=== PATIENT | male | born 1945 ===

== ENCOUNTER → 2016-11-30 | Outpatient (REF) | payer MEDICARE, OTHER ==
[~2016-11-30] MED LIST: /WARF25TA OR; /WARF5TA OR; ACET65TA OR; ADVIL PO; ALEVE PO; AMLO10TA OR; PERC7.5T8 OR
[2016-11-30 13:50] LABS: PERCENT SATURATION 14.2 % (19.7-37.4)
== END ==
LOC: M LAB REF 12:41
PROVIDERS: ATTEND Internal Medicine
DX: D50.9 Iron deficiency anemia, unspecified (principal)

== ENCOUNTER → 2017-03-25 | Outpatient (REF) | payer MEDICARE, OTHER | LOC: M LAB REF 10:56 | PROVIDERS: ATTEND Internal Medicine | DX: D50.9 Iron deficiency anemia, unspecified (principal) ==

== ENCOUNTER → 2018-02-08 | Outpatient (REF) | payer MEDICARE, OTHER ==
[2018-02-08 11:34] LABS: FERRITIN 130 NG/ML (26-388); IRON (FE) 68 UG/DL (65-175); PERCENT SATURATION 18.7 % (19.7-50.0); TOTAL IRON BINDING CAPACITY 363 UG/DL (250-450)
== END ==
LOC: M LAB REF 11:10
DX: D50.9 Iron deficiency anemia, unspecified (principal)
CPT/HCPCS: 83550

== ENCOUNTER → 2019-02-02 | Outpatient (REF) | payer MEDICARE, OTHER ==
[~2019-02-02] MED LIST changes: -/WARF25TA OR; -/WARF5TA OR; +COUM1TAB17 OR; +COUM1TAB18 OR
[2019-02-02 13:02] LABS: PERCENT SATURATION 21.7 % (19.7-50.0)
== END ==
LOC: M LAB REF 12:15
PROVIDERS: ATTEND Internal Medicine
DX: D50.9 Iron deficiency anemia, unspecified (principal)

== ENCOUNTER → 2020-06-10 | Outpatient (REF) | payer MEDICARE, OTHER ==
[2020-06-10 13:55] LABS: PERCENT SATURATION 14.9 % (19.7-50.0)
== END ==
LOC: M LAB REF 12:26
PROVIDERS: ATTEND Internal Medicine
DX: D50.9 Iron deficiency anemia, unspecified (principal)

== ENCOUNTER → 2020-12-17 | Outpatient (REF) | payer MEDICARE, OTHER ==
[2020-12-17 14:43] LABS: PERCENT SATURATION 19.4 % (19.7-50.0)
== END ==
LOC: M LAB REF 12:42
PROVIDERS: ATTEND Internal Medicine
DX: D50.9 Iron deficiency anemia, unspecified (principal)

== ENCOUNTER → 2021-12-22 | Outpatient (REF) | payer MEDICARE, OTHER ==
[2021-12-22 13:23] LABS: PERCENT SATURATION 14.4 % (19.7-50.0)
== END ==
LOC: M LAB REF 12:05
PROVIDERS: ATTEND Internal Medicine
DX: D50.9 Iron deficiency anemia, unspecified (principal)

== ENCOUNTER → 2022-09-21 | Outpatient (REF) | payer MEDICARE, OTHER ==
[2022-09-21 14:01] LABS: PERCENT SATURATION 18.5 % (19.7-50.0)
[2022-09-21 14:05] LABS: FERRITIN 112.5 NG/ML (10.5-307.3)
== END ==
LOC: M LAB REF 12:27
PROVIDERS: ATTEND Internal Medicine
DX: D50.9 Iron deficiency anemia, unspecified (principal)

== ENCOUNTER → 2023-03-14 | Outpatient (REF) | payer MEDICARE, OTHER ==
[2023-03-14 18:53] LABS: PERCENT SATURATION 17.8 % (19.7-50.0)
[2023-03-14 18:56] LABS: FERRITIN 127.4 NG/ML (10.5-307.3)
== END ==
LOC: M LAB REF 16:47
PROVIDERS: ATTEND Internal Medicine
DX: D50.9 Iron deficiency anemia, unspecified (principal)

== ENCOUNTER → 2024-03-26 | Outpatient (REF) | payer MEDICARE, OTHER ==
[2024-03-26 12:47] LABS: PERCENT SATURATION 19.6 % (19.7-50.0)
[2024-03-26 12:52] LABS: FERRITIN 126.9 NG/ML (10.5-307.3)
== END ==
LOC: M LAB REF 11:40
PROVIDERS: ATTEND Internal Medicine
DX: D64.9 Anemia, unspecified (principal)

== ENCOUNTER → 2024-09-27 | Outpatient (REF) | payer MEDICARE, OTHER ==
[2024-09-27 13:08] LABS: PERCENT SATURATION 18.1 % (19.7-50.0)
[2024-09-27 13:11] LABS: FERRITIN 136.8 NG/ML (10.5-307.3)
== END ==
LOC: M LAB REF 12:04
PROVIDERS: ATTEND Internal Medicine
DX: D50.9 Iron deficiency anemia, unspecified (principal)

== ENCOUNTER → 2025-04-05 | Outpatient (REF) | payer MEDICARE, OTHER ==
[2025-04-05 12:37] LABS: IRON (FE) 57.0 UG/DL (65-175); PERCENT SATURATION 18.2 % (19.7-50.0)
== END ==
LOC: M LAB REF 12:06
PROVIDERS: ATTEND Internal Medicine
DX: D50.9 Iron deficiency anemia, unspecified (principal)